=== PATIENT | female | born 1995 | race Caucasian/White ===

== ENCOUNTER 2018-08-05 08:51 | Emergency (ER) | payer SELFPAY ==
[~2018-08-05] VITALS: Ht 154.9 cm; Wt 52.2 kg
[~2018-08-05 08:51] MED LIST: ALBU8.5H8; CITA20TA6 PO; LANS15TA6 PO
--- NOTE | 2018-08-05 09:10 | NUR ---
ASSUMED CARE OF PT AT THIS TIME FROM TRIAGE. PT AMBULATORY TO ROOM WITH STEADY GAIT. SILVERIO SANODVAL AT BEDSIDE FOR EVALUATION. AWAITING ORDERS. A&OX4, CHEERFUL, 23 Y/O F REPORTS "I HAVE HAD POSITIVE HOME TESTS, MY LAST PERIOD WAS June BUT IT WASN'T A NORMAL ONE, THIS MORNING I STARTED HAVING RLQ ABD PAIN AND SPOTTING, IT'S NOT A LOT, SOME WHEN I WIPE AND I HAVE A PANTY LINER ON BUT I WAS CONCERNED." LMP 07/10/18. G1,P0,A0. CONT PULSE OX, BP MONITORS APPLIED. VSS. CALL LIGHT IN REACH. FALL PRECAUTIONS IN PLACE. SIDE RAILS UPX2. DENIES N/V/D. REFUSES NEED FOR PAIN MEDICATION AT THIS TIME.
--- NOTE | 2018-08-05 09:21 | NUR ---
CLEAN CATCH UA COLLECTED AND SENT TO LAB
[2018-08-05 09:31] LABS: MICROSCOPIC AUTO
[2018-08-05 09:33] LABS: CULTURE INDICATED? YES
[2018-08-05] MEDS ORDERED: PREN1TAB28 PO (09:33)
[2018-08-05 09:40] LABS: BASOPHILS # (AUTO) 0.02 x10^3/uL (0-0.1); BASOPHILS % (AUTO) 0 % (0-1); EOSINOPHILS # (AUTO) 0.13 x10^3/uL (0-0.4); EOSINOPHILS % (AUTO) 2 % (1-7); LYMPHOCYTES # (AUTO) 1.48 x10^3/uL (1-3.4); LYMPHOCYTES % (AUTO) 25 % (22-44); MD NO; MEAN CORPUSCULAR HEMOGLOBIN 30.4 pg (27.0-34.8); MEAN CORPUSCULAR HGB CONC 34.3 g/dL (32.4-35.8); MEAN CORPUSCULAR VOLUME 88.8 fL (80-100); MEAN PLATELET VOLUME 9.4 fL (7.4-10.4); MONOCYTES # (AUTO) 0.29 x10^3/uL (0.2-0.8); MONOCYTES % (AUTO) 5 % (2-9); NEUTROPHILS # (AUTO) 4.07 x10^3/uL (1.8-6.8); NEUTROPHILS % (AUTO) 68 % (42-75); PLATELET COUNT 179 x10^3/uL (130-400); RED BLOOD COUNT 4.82 x10^6/uL (3.82-5.3); RED CELL DISTRIBUTION WIDTH 13.6 % (9.6-15.2)
[2018-08-05 09:51] LABS: ALBUMIN 4.3 g/dL (3.4-5.0); ANION GAP 4 mmol/L (5-15); CHLORIDE 110 mmol/L (98-107); CREATININE 0.62 mg/dL (0.55-1.02)
--- NOTE | 2018-08-05 10:10 | NUR ---
PT IN US
--- NOTE | 2018-08-05 10:45 | NUR ---
PT BACK FROM US. RESTING IN POSITION OF COMFORT. DENIES NEED TO USE RESTROOM. VSS. CALL LIGHT IN REACH. AWAITING US RESULTS.
--- NOTE | 2018-08-05 11:06 | NUR ---
PT UP FOR RECHECK
--- NOTE | 2018-08-05 11:17 | NUR ---
PT RESTING IN POSITION OF COMFORT. DENIES NEED TO USE RESTROOM. REPORTS ABD PAIN " DOWN A LOT, IT'S LIKE 03/31 AND THE SPOTTING SEEMS TO HAVE DOWN TOO." PT CONTINUES AWAITING RECHECK. VSS. CALL LIGHT IN REACH
--- NOTE | 2018-08-05 11:25 | NUR ---
SILVERIO SANDOVAL AT BEDSIDE FOR RECHECK
--- NOTE | 2018-08-05 11:35 | NUR ---
PT CLEARED FOR DISCHARGE, AWAITING CHART AND DISCHARGE PAPERS FROM [facility]
[2018-08-05 11:43] VITALS: BP 121/60
== END 2018-08-05 11:46 | disposition home or self-care (01) ==
LOC: ED 09:15
DX: O20.0 Threatened abortion (principal)
CPT/HCPCS: 36415; 76801; 76857; 80048; 81001; 82040; 84702; 85025; 86901; 87086; 99284

== ENCOUNTER 2018-08-06 18:03 | Emergency (ER) | payer SELFPAY ==
[~2018-08-06] VITALS: Ht 154.9 cm; Wt 52.3 kg
[~2018-08-06 18:03] MED LIST changes: +PREN1TAB28 PO
--- NOTE | 2018-08-06 18:47 | NUR ---
pt to US
--- NOTE | 2018-08-06 19:02 | NUR ---
report given to You PANDEY
--- NOTE | 2018-08-06 19:07 | NUR ---
REPORT FROM ISATU Walls RN. WAITING FOR LABS AND US.
[2018-08-06 20:50] VITALS: BP 121/62
== END 2018-08-06 20:53 | disposition home or self-care (01) ==
LOC: ED 19:31
DX: O03.4 Incomplete spontaneous abortion without complication (principal)
CPT/HCPCS: 36415; 76801; 84702; 99284

== ENCOUNTER 2018-11-17 20:17 | Emergency (ER) | payer MEDICAID ==
[~2018-11-17] VITALS: Ht 154.9 cm; Wt 51.4 kg
[2018-11-17 20:19] VITALS: BP 116/71
[2018-11-17] MEDS ORDERED: LIDOCAINE-MPF 1%, 5ML INFIL ONE (21:00)
[2018-11-17] MEDS ORDERED: LIDOCAINE-MPF 1%, 5ML ONE (21:07)
[2018-11-17] MEDS ORDERED: ONDANSETRON ODT 4 MG ONE (21:22)
[2018-11-17] MEDS ORDERED: ONDANSETRON ODT 4 MG PO ONE (22:00)
== END 2018-11-17 22:22 | disposition home or self-care (01) ==
LOC: ED 22:05
DX: S61.211A Laceration without foreign body of left index finger without damage to nail, initial encounter (principal); M79.642 Pain in left hand; X58.XXXA Exposure to other specified factors, initial encounter; Y93.89 Activity, other specified; Y92.009 Unspecified place in unspecified non-institutional (private) residence as the place of occurrence of the external cause; Y99.8 Other external cause status
CPT/HCPCS: 12041; 99284; Q0162

== ENCOUNTER 2019-01-26 15:21 | Emergency (ER) | payer MEDICAID ==
[~2019-01-26] VITALS: Ht 154.9 cm; Wt 50.0 kg
[2019-01-26 15:24] VITALS: BP 127/62
== END 2019-01-26 15:51 | disposition home or self-care (01) ==
LOC: ED 15:45
DX: K02.9 Dental caries, unspecified (principal)
CPT/HCPCS: 99283

== ENCOUNTER 2020-02-15 14:27 | Emergency (ER) | payer MEDICAID ==
[~2020-02-15] VITALS: Ht 154.9 cm; Wt 47.7 kg
--- NOTE | 2020-02-15 15:24 | NUR ---
TASK RN NOTE: PT PRESENTS TO ED WITH C/O N/V/D X 7 DAYS. PT IS A&O, RESPS EVEN AND UNLABORED. MOTHER AT BEDSIDE. BP AND SPO2 MONITORS IN PLACE. CALL LIGHT IN REACH. JOSE PAL AT BEDSIDE FOR INITIAL EXAM.
--- NOTE | 2020-02-15 15:41 | NUR ---
REPORT FROM YOSSI PANDEY.
[2020-02-15] MEDS ORDERED: ONDANSETRON 2MG/ML, 2ML ONE (15:57)
[2020-02-15] MEDS ORDERED: SODIUM CHLORIDE FLUSH 10ML SYR IVF ONE (16:00)
[2020-02-15] MEDS ORDERED: SODIUM CHLORIDE 0.9% 1,000ML IVBOLUS ONE (16:00)
[2020-02-15] MEDS ORDERED: ONDANSETRON 2MG/ML, 2ML IVPush ONE (16:00)
[2020-02-15 16:15] VITALS: BP 121/74
[2020-02-15 16:25] LABS: BASOPHILS % (AUTO) 0 % (0-1); EOSINOPHILS % (AUTO) 0 % (1-7); LYMPHOCYTES % (AUTO) 8 % (22-44); MEAN CORPUSCULAR HGB CONC 33.9 g/dL (32.4-35.8); MEAN PLATELET VOLUME 9.6 fL (7.4-10.4); MONOCYTES % (AUTO) 7 % (2-9); NEUTROPHILS % (AUTO) 85 % (42-75); PLATELET COUNT 275 x10^3/uL (130-400); RED BLOOD COUNT 5.22 x10^6/uL (3.82-5.3); RED CELL DISTRIBUTION WIDTH 12.5 % (9.6-15.2)
[2020-02-15 16:27] LABS: MICROSCOPIC AUTO
[2020-02-15 16:30] LABS: ALANINE AMINOTRANSFERASE 47 U/L (12-78); ALBUMIN 4.9 g/dL (3.4-5.0); ANION GAP 11 mmol/L (5-15); CALCIUM 9.7 mg/dL (8.5-10.1); CHLORIDE 99 mmol/L (98-107); CREATININE 0.77 mg/dL (0.55-1.02)
[2020-02-15 16:35] LABS: ALKALINE PHOSPHATASE 52 U/L (45-117); BILIRUBIN,TOTAL 1.3 mg/dL (0.2-1.0); TOTAL PROTEIN 8.9 g/dL (6.4-8.2)
[2020-02-15] MEDS ORDERED: CEFTRIAXONE PMX 1GM/50ML 50 ML IV ONE (17:00)
[2020-02-15] MEDS ORDERED: POTASSIUM CHLORIDE 20 MEQ TAB.ER.PRT PO ONE (17:00)
[2020-02-15 17:08] LABS: MD SCAN
== END 2020-02-15 15:39 ==
LOC: ED 15:38
DX: K52.9 Noninfective gastroenteritis and colitis, unspecified (principal); N30.00 Acute cystitis without hematuria; E87.6 Hypokalemia; R11.2 Nausea with vomiting, unspecified
CPT/HCPCS: 36415; 80053; 81001; 83605; 83690; 84703; 85025; 87086; 96374; 99283; J2405; J7030

== ENCOUNTER 2020-05-13 20:33 | Emergency (ER) | payer MEDICAID ==
[~2020-05-13] VITALS: Ht 154.9 cm; Wt 50.4 kg
[2020-05-13] MEDS ORDERED: PROPOFOL 10 MG/ML, 20ML ONE (21:20)
--- NOTE | 2020-05-13 21:28 | NUR ---
PATIENT RESTING IN BED IN NAD. CALM AND COOPERATIVE WITH CARE. VISITOR AT BEDSIDE. SPEAKS FULL SENTENCES. ABLE TO HANDLE SECRETIONS AT THIS TIME. NOT REQUIRING O2 O2 SATURATION ON RA IS 100%. PATIENT STATES SHE ATE STEAK AROUND 1800 AND HAS "TRIED EVERYTHING" INCLUDING SODA POP AND WATER. PATIENT STATES SHE HAS BEEN COUGHING AND HAS COUGHED UP BLOOD TRYING TO DISLODGE STEAK. NO COUGH PRIOR TO INCEDENT. PATIENT STATES SHE HAS HAD SAME PREVIOUSLY AND HAD NO ADVERSE EVENTS WITH SEDATION. SAFETY MAINTAINED. IV PLACED FOR SEDATION REPORT GIVEN TO MARGARITO PANDEY SHE WILL BE TAKING OVER FOR SEDATION WHEN ENDO ARRIVES
[2020-05-13] MEDS ORDERED: SODIUM CHLORIDE FLUSH 10ML SYR IVF ONE (21:30)
[2020-05-13] MEDS ORDERED: PROPOFOL 10 MG/ML, 20ML IVPush ONE (21:30)
--- NOTE | 2020-05-13 21:56 | NUR ---
TASK RN: GI AT BS TO DISCUSS POC WITH PT. CONSENT SIGNED AND PLACED IN CHART. AWAIGING ENDO TEAM FOR SEDATION.
--- NOTE | 2020-05-13 22:05 | NUR ---
PATIENT RESTING IN BED IN NAD. ABLE TO SPEAK FULL SENTENCES AND HANDLE SECRETIONS. SAFETY MAINTAINED. WILL CONTINUE TO MONITOR.
--- NOTE | 2020-05-13 22:45 | NUR ---
SEDATION COMPLETED. FB REMOVED. SEE SEDATION PACKET FOR FURTHER DETAILS. PT. FULLY RECOVERED AT THIS TIME. REPORT BACK TO KATHERIN HANNA TO RE-ASSUME CARE OF PT.
--- NOTE | 2020-05-13 22:46 | NUR ---
SEDATION IS COMPLETE AND PATIENT BACK TO BASELINE. SITTING UP IN BED A&OX4. VS REMAIN STABLE. WILL CONTINUE TO MONITOR FOR ~1 HOUR AND THEN WILL DC.CALL CHO IN REACH. SAFETY MAINTAINED. WILL CONTINUE TO MONITOR.
--- NOTE | 2020-05-13 23:35 | NUR ---
PATIENT AMBULATED TO BATHROOM WITH STEADY GAIT. A&OX4. PATIENT ABLE TO HANDLE SECRETIONS. SPEAKS FULL SENTENCES. WILL CONTINUE TO MONITOR. SHE IS APPROPRIATE FOR DISCHARGE
--- NOTE | 2020-05-13 23:40 | NUR ---
DISCHARGE INSTRUCTIONS REVIEWED WITH PATIENT. NO FURTHER QUESTIONS. PRESCRIPTION HANDED DIRECTLY TO PATIENT. VS REMAIN STABLE ON RA. IV REMOVED PER DC PROTOCOL. ALL PERSONAL BELONGINGS WITH PATIENT ON DC. STEADY GAIT TO LOBBY
--- NOTE | 2020-05-13 23:50 | NUR ---
LATE ENTRY: DURING SEDATION 180MG OF PROPOFOL TOTAL ADMIN BY DR. REES; SEE SEDATION PAPERWORK. 220MG OF PROPOFOL WASTED BY THIS RN WITH GLYNN CONNELLY RN WITNESS.
[2020-05-13 23:58] VITALS: BP 117/48
== END 2020-05-14 | disposition home or self-care (01) ==
LOC: ED 21:18
DX: T18.128A Food in esophagus causing other injury, initial encounter (principal); X58.XXXA Exposure to other specified factors, initial encounter; Y93.89 Activity, other specified; Y92.89 Other specified places as the place of occurrence of the external cause; Y99.8 Other external cause status
CPT/HCPCS: 99152; 99285